=== PATIENT | male | born 1950 | race Caucasian/White ===

== ENCOUNTER 2018-02-17 10:30 | Emergency (ER) | payer BC, MEDICARE ==
[2018-02-17] MEDS ORDERED: FENTANYL CITRATE INJ/PF 100 MCG/2 ML AMPUL IV ONE (12:11)
[2018-02-17] MEDS ORDERED: CLINDAMYCIN 300 MG/D5W RTU 300 MG/50 ML RTUPB IV ONE (12:12)
--- NOTE | 2018-02-17 12:14 | ER Document Report ---
ED Medical Screen (RME) - General Chief Complaint: Finger Injury Stated Complaint: FINGER PAIN Time Seen by Provider: 02/17/18 12:10 Notes: RME DISCLOSURE I have seen this patient as part of a Rapid Medical Evaluation and, if applicable, placed any initially appropriate orders. The patient will be seen and fully evaluated, including a full history and physical exam, by a provider ( in Main ED or Fast Track) when a room becomes available. 67-year-old male here with complaints of right middle finger swelling and infection that has progressively worsened and now the redness has spread. He went to his PCP office this morning and was sent here for further evaluation because of the redness is now streaking up his forearm and into his arm. He has had this in the past. - Related Data Allergies/Adverse Reactions: codeine Adverse Reaction (Verified 02/17/18 10:32) Past Medical History - Past Medical History Cardiac Medical History: Denies: Hx Congestive Heart Failure, Hx Heart Attack, Hx Hypertension, Hx Heart Murmur Pulmonary Medical History: Denies: Hx Asthma, Hx Bronchitis, Hx COPD, Hx Pneumonia, Hx Tuberculosis Neurological Medical History: Denies: Hx Cerebrovascular Accident, Hx Seizures GI Medical History: Denies: Hx Hepatitis, Hx Ulcer Musculoskeltal Medical History: Denies Hx Arthritis, Denies Hx Muscle Weakness Infectious Medical History: Denies: Hx Hepatitis Past Surgical History: Denies: Hx Open Heart Surgery, Hx Pacemaker Physical Exam - Vital signs Vitals: Temp Pulse Resp BP Pulse Ox 98.4 F 79 18 140/76 H 95 02/17/18 10:49 02/17/18 10:49 02/17/18 10:49 02/17/18 10:49 02/17/18 10:49 Course - Vital Signs Vital signs: Temp Pulse Resp BP Pulse Ox 98.4 F 79 18 140/76 H 95 02/17/18 10:49 02/17/18 10:49 02/17/18 10:49 02/17/18 10:49 02/17/18 10:49
--- NOTE | 2018-02-17 12:57 | RADIOLOGY REPORT (SQ) ---
EXAM DESCRIPTION: FINGER RIGHT COMPLETED DATE/TIME: 02/17/2018 12:41 pm REASON FOR STUDY: R middle finger infection; eval osteomyelitis COMPARISON: None. NUMBER OF VIEWS: Three views. TECHNIQUE: AP, lateral, and oblique images acquired of the right third finger. LIMITATIONS: None. FINDINGS: MINERALIZATION: Normal. BONES: A rounded relative lucency is seen within the 3rd digit distal phalanx; no definite periosteal reaction is seen in this region. Background of 1st through 3rd digit metacarpal phalangeal degenera tive changes. No evidence of acute fracture. SOFT TISSUES: Soft tissue swelling of the 3rd digit distally OTHER: No other significant finding. IMPRESSION: Osseous lucency involving the 3rd digit distal phalanx underlying reported soft tissue i nfection. While no significant periosteal reaction is demonstrated, findings are concerning for osse ous extension. COMMENT: SITE OF TRAUMA/COMPLAINT MARKED/STAMP COMPLETED: Yes TECHNICAL DOCUMENTATION: JOB ID: [id number] [email or web address]- All Rights Reserved Reading location - IP/workstation name: [email or web address]
[2018-02-17 13:09] LABS: ABSOLUTE BASOPHILS # (AUTO) 0.1 10^3/uL (0.0-0.2); ABSOLUTE EOSINOPHILS # (AUTO) 0.1 10^3/uL (0.0-0.6); ABSOLUTE LYMPHOCYTES (AUTO) 1.3 10^3/uL (0.5-4.7); ABSOLUTE MONOCYTES (AUTO) 1.1 10^3/uL (0.1-1.4); ABSOLUTE NEUT (AUTO) 9.2 10^3/uL (1.7-8.2); BASOPHILS % (AUTO) 0.5 % (0-2); EOSINOPHILS % (AUTO) 0.5 % (0-6); HEMATOCRIT 45.2 % (37.9-51.0); HEMOGLOBIN 15.1 g/dL (13.5-17.0); LYMPHOCYTES % (AUTO) 11.4 % (13-45); MEAN CORPUSCULAR HEMOGLOBIN 29.2 pg (27.0-33.4); MEAN CORPUSCULAR HGB CONC 33.5 g/dL (32.0-36.0); MEAN CORPUSCULAR VOLUME 87 fl (80-97); MONOCYTES % (AUTO) 9.1 % (3-13); PLATELET COUNT 164 10^3/uL (150-450); RED BLOOD COUNT 5.17 10^6/uL (4.35-5.55); RED CELL DISTRIBUTION WIDTH 13.2 % (11.5-14.0); SEGMENTED NEUTROPHILS % (AUTO) 78.5 % (42-78); TOTAL CELLS COUNTED % (AUTO) 100 %; WHITE BLOOD COUNT 11.7 10^3/uL (4.0-10.5)
[2018-02-17 13:26] LABS: ANION GAP 13 (5-19); BLOOD UREA NITROGEN 14 mg/dL (7-20); CALCIUM 9.7 mg/dL (8.4-10.2); CARBON DIOXIDE 27 mmol/L (22-30); CHLORIDE 102 mmol/L (98-107); GLUCOSE 107 mg/dL (75-110); POTASSIUM 4.3 mmol/L (3.6-5.0); SODIUM 141.6 mmol/L (137-145)
[2018-02-17 13:46] LABS: ERYTHROCYTE SEDIMENTATION RATE 12 mm/hr (0-20)
[2018-02-17] MEDS ORDERED: LIDOCAINE 1% INJ-PF (10 MG/ML) 30 ML SDV INJ ONE (14:26)
--- NOTE | 2018-02-17 14:48 | ER Document Report ---
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 States that it has been getting more swollen over the last several days. This is nothing new. States that sometimes he will get streaking that goes up his arm. Thinks that he crushed his finger in the past. Came in today because pain is getting more swollen on the distal tip with a red streaking. Denies any fever, chills, sweats. Patient was seen at triage. Initially received CBC, x-ray and IV antibiotics. - HPI Injury to: Hand, Middle finger Onset: Yesterday Where: Home - Related Data Allergies/Adverse Reactions: codeine Adverse Reaction (Verified 02/17/18 10:32) Home Medications: no home meds Past Medical History - General Information source: Patient - Social History Smoking Status: Never Smoker Frequency of alcohol use: Occasional Drug Abuse: None Lives with: Family Family History: Reviewed & Not Pertinent Patient has suicidal ideation: No Patient has homicidal ideation: No - Past Medical History Cardiac Medical History: Denies: Hx Congestive Heart Failure, Hx Heart Attack, Hx Hypertension, Hx Heart Murmur Pulmonary Medical History: Denies: Hx Asthma, Hx Bronchitis, Hx COPD, Hx Pneumonia, Hx Tuberculosis Neurological Medical History: Denies: Hx Cerebrovascular Accident, Hx Seizures Renal/ Medical History: Denies: Hx Peritoneal Dialysis GI Medical History: Denies: Hx Hepatitis, Hx Ulcer Musculoskeltal Medical History: Denies Hx Arthritis, Denies Hx Muscle Weakness Infectious Medical History: Denies: Hx Hepatitis Past Surgical History: Denies: Hx Open Heart Surgery, Hx Pacemaker Review of Systems - Review of Systems Constitutional: denies: Fever, Malaise, Weakness Cardiovascular: denies: Chest pain, Palpitations, Heart racing Respiratory: denies: Cough, Hurts to breathe, Short of breath Musculoskeletal: See HPI, Other - Actually his middle finger right hand swollen Skin: See HPI, Other - Patient is cellulitis/paronychia of the third digit on the right hand Physical Exam - Vital signs Vitals: Temp Pulse Resp BP Pulse Ox 98.4 F 79 18 140/76 H 95 02/17/18 10:49 02/17/18 10:49 02/17/18 10:49 02/17/18 10:49 02/17/18 10:49 Interpretation: Normal - General General appearance: Appears well, Alert - Respiratory Respiratory status: No respiratory distress Chest status: Nontender Breath sounds: Normal Chest palpation: Normal - Extremities General upper extremity: Other - Is a swollen finger third digit right hand. There is tenderness to palpation. There is some lymphangitic streaking going up the right upper extremity. There is no significant amount of tenderness to palpation of the flexor tendons on the palmar surface. Most of fluctuance and swelling is located on the dorsum of the third digit. There is a disfigured nail with some subungual hematoma noted underneath the right now is about 4 by third digit. General lower extremity: Normal inspection, Nontender, Normal color, Normal ROM , Normal temperature, Normal weight bearing. No: Yesenia's sign - Skin Skin Temperature: Warm Skin Moisture: Dry Skin Color: Other - Swelling, cellulitic appearance of the distal tip of the third digit on the right hand Course - Re-evaluation Re-evalutation: 02/17/18 14:52 Patient was consented for incision and drainage. Will do digital block and make a few small incisions to help evacuate the pus. Patient will be given antibiotics. Follow-up with Orth O. Return for worsening symptoms or concerns. 02/17/18 15:31 Patient received IV antibiotics and incision and drainage. Slightly elevated WBC count. Informed patient with regards to the abnormal finding on the finger x-ray. I explained to him that this could be an old finding or this could represent early osteomyelitis as it is very difficult to tell. We will try oral antibiotics at this time as well as pain medication. Patient advised to return in 24 hours for recheck or sooner if symptoms are getting worse. Patient verbalized agreement and understanding of follow-up instructions. Follow-up instructions will also be given to see orthopedics. - Vital Signs Vital signs: Temp Pulse Resp BP Pulse Ox 98.4 F 79 18 140/76 H 95 02/17/18 10:49 02/17/18 10:49 02/17/18 10:49 02/17/18 10:49 02/17/18 10:49 - Laboratory Result Diagrams: 02/17/18 12:20 02/17/18 12:20 Laboratory results interpreted by me: 02/17/18 12:20 WBC 11.7 H Seg Neutrophils % 78.5 H Lymphocytes % 11.4 L Absolute Neutrophils 9.2 H Procedures - Incision and Drainage Right 3rd digit Time completed: 15:29 Type: Simple Anesthetic type: 1% Lidocaine mL's of anesthetic: 8 Blade size: 11 I&D procedure: Betadine prep applied, Chlorprep applied, Iodoform packing placed , Sterile dressing applied Incision Method: Incision made by scalpel Amount/type of drainage: 2 ml purulent drainage with blood Notes: 02/17/18 15:30 A small incision was made on the dorsal surface of the third digit chest superior to the nail. Area was explored. A large pus pocket was removed. After exploration of the abscess attention was moved to the nail which seemed to be the nidus of infection. The nail was removed with gentle traction. The nail came apart into pieces. There was tracking noted from the subungual area to the incision which was made on the dorsum of the finger. No further drainage of purulent material was obtained. Iodoform packing was placed over but not in the finger. Sterile dressings were applied. A finger splint was applied. Discharge - Discharge Clinical Impression: Felon of finger of right hand Condition: Good Disposition: HOME, SELF-CARE Instructions: Gabbie (Fingertip Abscess) (ON LICENSE OF [facility]) Additional Instructions: It will be very important that you take antibiotics as prescribed. Please return in 24 hours for recheck. If your pain, redness and swelling get worse over the next 12-24 hours return sooner. Follow-up as instructed as well with orthopedic surgery to further evaluate the lucency seen on x-ray to make sure that this is not something more serious such as a bone infection or malignancy. Prescriptions: Clindamycin HCl 300 mg PO QID 7 Days #28 capsule Hydrocodone/Acetaminophen [[place] 5-325 mg Tablet] 1 tab PO TID PRN 4 Days #12 tablet PRN Reason: Referrals: SUMMER CARRION, [facility]ISHER [Primary Care Provider] - Follow up as needed
[2018-02-17 15:37] VITALS: BP 117/70
[2018-02-18] MEDS ORDERED: DIPH/PERTUSS(ACELL)/TETANUS VAC/PF 0.5 ML SYR (>=10YO) IM ONE (12:33)
== END 2018-02-17 15:58 | disposition home or self-care (01) ==
LOC: ER 10:30
PROC: 0H9FXZZ Drainage of Right Hand Skin, External Approach (ICD-10-PCS; principal; 2018-02-17)
DX: L03.011 Cellulitis of right finger (principal); Z88.6 Allergy status to analgesic agent
CPT/HCPCS: 99284; 96375; 96365; 36415; 87040; 85025; 85652; 80048; 73140; 26010; A6266; J3490 ×2; J3010

== ENCOUNTER 2018-02-18 08:48 | Emergency (ER) | payer MEDICARE ==
[2018-02-18 08:52] VITALS: BP 146/66
--- NOTE | 2018-02-18 09:49 | ER Document Report ---
ED Wound - General Chief Complaint: Wound Recheck Stated Complaint: WOUND CHECK Time Seen by Provider: 02/18/18 09:28 Mode of Arrival: Ambulatory Information source: Patient Notes: Patient is a 67-year-old male who presents to the ER today for recheck of wound to the right third digit, patient was seen here yesterday for infection under the nail bed that was chronic but he had streaking up the right arm yesterday. Patient was treated with IV antibiotics yesterday in the emergency department and removal of the nail. Patient was sent home on antibiotics. Patient states that he was told to come back for recheck, states that the wound looks much better and that there is no longer any redness or streaking up his right arm. He denies any fevers or chills. He states that he is crushed the finger in the past and has had recurrent issues with it since. TRAVEL OUTSIDE OF THE [place] IN LAST 30 DAYS: No - Related Data Allergies/Adverse Reactions: codeine Adverse Reaction (Verified 02/18/18 08:48) Past Medical History - General Information source: Patient - Social History Smoking Status: Former Smoker Family History: Reviewed & Not Pertinent - Past Medical History Cardiac Medical History: Denies: Hx Congestive Heart Failure, Hx Heart Attack, Hx Hypertension, Hx Heart Murmur Pulmonary Medical History: Denies: Hx Asthma, Hx Bronchitis, Hx COPD, Hx Pneumonia, Hx Tuberculosis Neurological Medical History: Denies: Hx Cerebrovascular Accident, Hx Seizures Renal/ Medical History: Denies: Hx Peritoneal Dialysis GI Medical History: Denies: Hx Hepatitis, Hx Ulcer Musculoskeltal Medical History: Denies Hx Arthritis, Denies Hx Muscle Weakness Infectious Medical History: Denies: Hx Hepatitis Past Surgical History: Denies: Hx Open Heart Surgery, Hx Pacemaker Review of Systems - Review of Systems Constitutional: No symptoms reported EENT: No symptoms reported Cardiovascular: No symptoms reported Respiratory: No symptoms reported Gastrointestinal: No symptoms reported Genitourinary: No symptoms reported Male Genitourinary: No symptoms reported Musculoskeletal: No symptoms reported Skin: See HPI Hematologic/Lymphatic: No symptoms reported Neurological/Psychological: No symptoms reported Physical Exam - Vital signs Vitals: Temp Pulse Resp BP Pulse Ox 98.4 F 73 16 146/66 H 98 02/18/18 08:51 02/18/18 08:51 02/18/18 08:51 02/18/18 08:51 02/18/18 08:51 - Notes Notes: PHYSICAL EXAMINATION: GENERAL: Well-appearing and in no acute distress. HEAD: Atraumatic, normocephalic. EYES: Pupils equal round and reactive to light, extraocular movements intact, sclera anicteric, conjunctiva are normal. NECK: Normal range of motion, supple without lymphadenopathy LUNGS: CTAB and equal. No wheezes rales or rhonchi. HEART: Regular rate and rhythm without murmurs EXTREMITIES: Normal range of motion, no pitting edema. No cyanosis. NEUROLOGICAL: Cranial nerves grossly intact. Normal sensory/motor exams. PSYCH: Normal mood, normal affect. SKIN: Warm, Dry, normal turgor, raw tissue with some erythema to the nail bed without male to third digit of right hand, mild erythema surrounding the nailbed , slightly tender to the plantar surface, pad of the left third digit distally, no erythema to the rest of the finger, hand or arm, no drainage, no bleeding Course - Re-evaluation Re-evalutation: 02/18/18 09:51 Son states that the wound looks much better after it was unwrapped today and the swelling has gone down significantly. I advised patient to continue his antibiotics he was prescribed yesterday. - Vital Signs Vital signs: Temp Pulse Resp BP Pulse Ox 98.4 F 73 16 146/66 H 98 02/18/18 08:51 02/18/18 08:51 02/18/18 08:51 02/18/18 08:51 02/18/18 08:51 Discharge - Discharge Clinical Impression: Felon of finger of right hand Infected nailbed of finger Qualifiers: Laterality: right Qualified Code(s): L03.011 - Cellulitis of right finger Condition: Stable Disposition: HOME, SELF-CARE Additional Instructions: Return immediately for any new or worsening symptoms. Follow up with primary care provider, call tomorrow to make followup appointment. Keep taking the antibiotic you are prescribed until it is finished. You do not have to come back unless you feel like the finger starts looking worse, please change the dressing every day until skin is no longer raw and you feel it does not need to be covered.
== END 2018-02-18 10:23 | disposition home or self-care (01) ==
LOC: ER 08:48
DX: L03.011 Cellulitis of right finger (principal); Z98.890 Other specified postprocedural states; Z87.891 Personal history of nicotine dependence
CPT/HCPCS: 99282